=== PATIENT | male | born 1985 | race African-American/Black ===

== ENCOUNTER 2018-08-08 17:14 | Emergency (ER) | payer OTHER ==
[2018-08-08 17:20] VITALS: BP 157/81
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
[2018-08-08] MEDS ORDERED: IBUPROFEN 800 MG TABLET PO ONE (17:37)
[2018-08-08] MEDS ORDERED: CLINDAMYCIN HCL 150 MG CAPSULE PO ONE (17:37)
== END 2018-08-08 17:46 | disposition home or self-care (01) ==
LOC: ER 17:14
DX: K02.9 Dental caries, unspecified (principal); K08.89 Other specified disorders of teeth and supporting structures; R68.84 Jaw pain; R22.0 Localized swelling, mass and lump, head; F17.210 Nicotine dependence, cigarettes, uncomplicated; J45.909 Unspecified asthma, uncomplicated
CPT/HCPCS: 99283; 99406